=== PATIENT | female | born 1985 | race Caucasian/White ===

== ENCOUNTER 2018-04-18 13:56 | Emergency (ER) | payer OTHER ==
[~2018-04-18] VITALS: Ht 160 cm; Wt 68.1 kg
[2018-04-18] MEDS ORDERED: IPRATRPIUM/ALBUTEROL 0.5/2.5MG 3 ML NEBU. NEB ONE (15:00)
[2018-04-18] MEDS ORDERED: HYDR115S2 PO (15:02)
[2018-04-18] MEDS ORDERED: AZIT250T PO (15:02)
--- NOTE | 2018-04-18 15:02 | PHYS DOC ---
Past History Past Medical History: Arthritis, Asthma, Fibromyalgia Past Surgical History: Other Smoking: Cigarettes, Less than 1pk/day Alcohol Use: Occasionally Additional Alcohol Information: couple beers per weekend Drug Use: None Adult General Chief Complaint Chief Complaint: COUGH HPI HPI 32-year-old female patient complaining of nasal congestion, nonproductive cough , fever up to 103.9, headache and nausea after cough for the last 3 days. Patient states she had tele medicine physician evaluation yesterday and was started on Tamiflu without improvement of her condition. Patient denies sick contact in . Review of Systems Review of Systems Constitutional: Reports fever Eyes: Denies change in visual acuity, redness, or eye pain [] HENT: Denies nasal congestion, sore throat Respiratory: Reports dry cough and shortness of breath Cardiovascular: No additional information not addressed in HPI [] GI: Denies abdominal pain, vomiting, bloody stools, reports nausea and diarrhea [] : Denies dysuria or hematuria [] Musculoskeletal: Denies back pain or joint pain [] Integument: Denies rash or skin lesions [] Neurologic: Denies headache, focal weakness or sensory changes [] Endocrine: Denies polyuria or polydipsia [] All other systems were reviewed and found to be within normal limits, except as documented in this note. Allergies Allergies Allergies Uncoded Allergies Type Severity Reaction Last Updated Verified strawberries Allergy Unknown Hives 04/18/18 Physical Exam Physical Exam Constitutional: Well developed, well nourished, mild distress, non-toxic appearance. [] HENT: Normocephalic, atraumatic, bilateral external ears normal, oropharynx moist, pharyngeal erythema, no oral exudates, nose normal. [] Eyes: PERRLA, EOMI, conjunctiva normal, no discharge. [] Neck: Normal range of motion, no tenderness, supple, no stridor. [] Cardiovascular:Heart rate regular rhythm, no murmur [] Lungs & Thorax: Bilateral breath sounds clear to auscultation [] Abdomen: Bowel sounds normal, soft, no tenderness, no masses, no pulsatile masses. [] Skin: Warm, dry, no erythema, no rash. [] Back: No tenderness, no CVA tenderness. [] Extremities: No tenderness, no cyanosis, no clubbing, ROM intact, no edema. [] Neurologic: Alert and oriented X 3, normal motor function, normal sensory function, no focal deficits noted. [] Psychologic: Affect normal, judgement normal, mood normal. [] Current Patient Data Vital Signs Vital Signs Date Time Temp Pulse Resp B/P (MAP) Pulse Ox O2 Delivery O2 Flow Rate FiO2 04/18/18 14:05 98.2 73 20 97 Room Air EKG EKG [] Radiology/Procedures Radiology/Procedures [] Course & Med Decision Making Course & Med Decision Making Evaluation of patient in ER showed 4-year-old female patient with complaining of URI symptoms for the last 3 days. Patient was afebrile in ER. Patient treated with DuoNeb and plan discharge home with diagnose of viral upper respiratory infection. On to give prescription for Zithromax to start if not getting better in 2 days. Dragon Disclaimer Dragon Disclaimer This electronic medical record was generated, in whole or in part, using a voice recognition dictation system. Departure Departure: Impression: Primary Impression: Upper respiratory infection Additional Impressions: Tobacco abuse Tobacco abuse counseling Disposition: HOME, SELF-CARE (at 1459) Condition: IMPROVED Referrals: SADE NGUYEN MD (PCP) Patient Instructions: Smoking Cessation, Smoking Cessation, Tips For Success, Upper Respiratory Infection, Adult Additional Instructions: Drink plenty of liquids Follow-up with your primary care physician in 3-5 days Return to ER if not getting better Scripts Hydrocodone/Chlorphen P-Stirex (Tussionex Pennkinetic Susp) 115 Ml Chloé.er.12h 5 ML PO BID, #60 ML Prov: DAYNA DIAZ MD 04/18/18 Azithromycin (ZITHROMAX) 250 Mg Tablet 1 PKG PO UD, #1 PKG Prov: DAYNA DIAZ MD 04/18/18 Problem Qualifiers DAYNA DIAZ MD Apr 18, 2018 15:02
[2018-04-18 15:09] VITALS: BP 109/64
== END 2018-04-18 15:09 | disposition home or self-care (01) ==
LOC: ER 13:56
DX: J06.9 Acute upper respiratory infection, unspecified (principal); R51 Headache; M19.90 Unspecified osteoarthritis, unspecified site; J45.909 Unspecified asthma, uncomplicated; M79.7 Fibromyalgia; F17.210 Nicotine dependence, cigarettes, uncomplicated; Z71.6 Tobacco abuse counseling; Z91.018 Allergy to other foods
CPT/HCPCS: 94640; 99283; J7620

== ENCOUNTER 2018-04-20 16:44 | Emergency (ER) | payer OTHER ==
[~2018-04-20] VITALS: Ht 160 cm; Wt 68.1 kg
[~2018-04-20 16:44] MED LIST: AZIT250T PO; HYDR115S2 PO
--- NOTE | 2018-04-20 16:58 | PHYS DOC ---
Past History Past Medical History: Arthritis, Asthma, Fibromyalgia Past Surgical History: Other Smoking: Cigarettes, Less than 1pk/day Alcohol Use: Occasionally Drug Use: None Adult General Chief Complaint Chief Complaint: FLU SYMPTOM HPI HPI Patient presents to the emergency department for evaluation. She states for the past 4 days, she has had nasal congestion, and a cough productive mostly of clear sputum, runny nose, and myalgias. She denies any headache. She states she had been running fevers but is currently afebrile. She was seen 2 days ago in the emergency department was given a cough syrup and a Z-Jony, which has continued to take. She has not gotten much better. She states she was post lobectomy work tomorrow, according to the work that she was given, but is not feeling better. She has not had any urinary symptoms. She denies any other focal pain other than diffuse myalgias. There are no alleviating or exacerbating factors to her symptoms. Review of Systems Review of Systems Constitutional: Reports subjective fevers, but not today. Reports myalgias.[] Eyes: Denies change in visual acuity, redness, or eye pain [] HENT: Denies otalgia or sore throat [] Respiratory: Denies shortness of breath [] Cardiovascular: No additional information not addressed in HPI [] GI: Denies abdominal pain, nausea, vomiting, bloody stools or diarrhea [] : Denies dysuria or hematuria [] Musculoskeletal: Denies back pain or joint pain [] Integument: Denies rash or skin lesions [] Neurologic: Denies headache, focal weakness or sensory changes [] Endocrine: Denies polyuria or polydipsia [] All other systems were reviewed and found to be within normal limits, except as documented in this note. Allergies Allergies Allergies Coded Allergies Type Severity Reaction Last Updated Verified strawberry Allergy Unknown Hives 04/18/18 Yes Physical Exam Physical Exam PHYSICAL EXAM: CONSTITUTIONAL: Well developed, well nourished HEAD: normocephalic, atraumatic EENT: PERRL, EOMI. Conjunctivae normal color, sclerae non-icteric; moist mucous membranes. The oropharynx is unremarkable. Tympanic membranes are normal bilaterally. NECK: Supple, non-tender; no meningismus. LUNGS: Lungs CTA, breathing even and unlabored. Normal air movement. HEART: Regular rate and rhythm, no murmur CHEST: No deformity; non-tender ABDOMEN: The abdomen is soft, and non-tender, no masses or bruits. EXTREM: Normal ROM; no deformity, no calf tenderness. Normal pulses palpable in all extremities. There is no pedal edema. SKIN: No rash; no diaphoresis NEURO: Alert; normal speech and cognition; CN's grossly intact; strength grossly intact without focal deficit. BACK: No CVA TTP. EKG EKG [] Radiology/Procedures Radiology/Procedures [] Course & Med Decision Making Course & Med Decision Making I discussed expectant management and use of [id number] NSAIDs and antipyretics as needed for pain and fever. Return precautions were discussed in detail. Dragon Disclaimer Dragon Disclaimer This electronic medical record was generated, in whole or in part, using a voice recognition dictation system. Departure Departure: Impression: Primary Impression: Upper respiratory infection Disposition: HOME, SELF-CARE Condition: STABLE Referrals: SADE NGUYEN MD (PCP) Patient Instructions: Upper Respiratory Infection, Adult ANY PROCTOR MD Apr 20, 2018 16:58
[2018-04-20 17:13] VITALS: BP 101/54
== END 2018-04-20 17:15 | disposition home or self-care (01) ==
LOC: ER 16:44
DX: J06.9 Acute upper respiratory infection, unspecified (principal); M19.90 Unspecified osteoarthritis, unspecified site; J45.909 Unspecified asthma, uncomplicated; M79.7 Fibromyalgia; F17.210 Nicotine dependence, cigarettes, uncomplicated; Z91.018 Allergy to other foods
CPT/HCPCS: 99281

== ENCOUNTER 2018-09-24 14:53 | Emergency (ER) | payer OTHER ==
[~2018-09-24] VITALS: Ht 160 cm; Wt 63.8 kg
[2018-09-24] MEDS ORDERED: HYDROcodone/APAP 5/325MG 1 TAB TABLET PO ONE (15:30)
[2018-09-24] MEDS ORDERED: IPRATRPIUM/ALBUTEROL 0.5/2.5MG 3 ML NEBU. NEB ONE (15:30)
[2018-09-24] MEDS ORDERED: methylPREDNISolone SOD SUCC PF 125 MG/2 ML VIAL. IM ONE (15:30)
--- NOTE | 2018-09-24 15:48 | PHYS DOC ---
Past History Past Medical History: Arthritis, Asthma, Fibromyalgia Past Surgical History: No Surgical History Smoking: Cigarettes, Less than 1pk/day Alcohol Use: None Drug Use: None Adult General Chief Complaint Chief Complaint: SHORTNESS OF BREATH HPI HPI Patient is a 33 year old female who presents with complaining of cough and shortness of breath. Patient states she had dry cough with shortness of breath that started 4 days ago and was started on Tamiflu by telemedicine physician 3 days ago. Patient states she had fever of 104 three days ago and complaining of increasing cough with chest soreness and shortness of breath and unable to use it because of severe cough. Patient complaining of myalgia and nausea. She denies sick contacts, vomiting, neck pain, , focal neuro deficit, headache. Review of Systems Review of Systems Constitutional: Reports fever Eyes: Denies change in visual acuity, redness, or eye pain [] HENT: Reports nasal congestion or sore throat Respiratory: Reports cough and shortness of breath Cardiovascular: No additional information not addressed in HPI [] GI: Denies abdominal pain, vomiting, bloody stools or diarrhea [] : Denies dysuria or hematuria [] Musculoskeletal: Denies back pain or joint pain [] Integument: Denies rash or skin lesions [] Neurologic: Denies headache, focal weakness or sensory changes [] Endocrine: Denies polyuria or polydipsia [] All other systems were reviewed and found to be within normal limits, except as documented in this note. Current Medications Current Medications Current Medications Medications (Trade) Dose Ordered Sig/Danielle Start Time Stop Time Status Last Admin Dose Admin Acetaminophen/ Hydrocodone Bitart (Lortab 5/325) 1 tab 1X ONCE 09/24/18 15:30 09/24/18 15:31 DC 09/24/18 15:28 1 TAB Albuterol/ Ipratropium (Duoneb) 3 ml 1X ONCE 09/24/18 15:30 09/24/18 15:31 DC 09/24/18 15:28 3 ML Methylprednisolone Sodium Succinate (SOLU-Medrol 125MG VIAL) 125 mg 1X ONCE 09/24/18 15:30 09/24/18 15:31 DC 09/24/18 15:28 125 MG Allergies Allergies Allergies Coded Allergies Type Severity Reaction Last Updated Verified strawberry Allergy Unknown Hives 04/18/18 Yes Physical Exam Physical Exam Constitutional: Well developed, well nourished, moderate distress, non-toxic appearance. [] HENT: Normocephalic, atraumatic, bilateral external ears normal, oropharynx moist, pharyngeal erythema, no oral exudates, nose normal. [] Eyes: PERRLA, EOMI, conjunctiva normal, no discharge. [] Neck: Normal range of motion, no tenderness, supple, no stridor. [] Cardiovascular:Heart rate regular rhythm, no murmur [] Lungs & Thorax: Bilateral breath sounds clear to auscultation [] Abdomen: Bowel sounds normal, soft, no tenderness, no masses, no pulsatile masses. [] Skin: Warm, dry, no erythema, no rash. [] Back: No tenderness, no CVA tenderness. [] Extremities: No tenderness, no cyanosis, no clubbing, ROM intact, no edema. [] Neurologic: Alert and oriented X 3, normal motor function, normal sensory function, no focal deficits noted. [] Psychologic: Affect normal, judgement normal, mood normal. [] Current Patient Data Vital Signs Vital Signs Date Time Temp Pulse Resp B/P (MAP) Pulse Ox O2 Delivery O2 Flow Rate FiO2 09/24/18 15:32 95 Room Air 09/24/18 15:28 18 09/24/18 15:07 98.7 80 EKG EKG [] Radiology/Procedures Radiology/Procedures [] Course & Med Decision Making Course & Med Decision Making Pertinent Imaging studies reviewed. (See chart for details) Evaluation of patient in ER showed 33-year-old female patient with complaining of cough and shortness of breath and chest soreness without responding to Tamiflu. Chest x-ray did not show infiltration. Patient had stable vital signs without fever and tachycardia and hypertension in ER. Patient treated with Solu- Medrol and DuoNeb and felt better. Plan discharge patient home to diagnose of acute bronchitis. Dragon Disclaimer Dragon Disclaimer This electronic medical record was generated, in whole or in part, using a voice recognition dictation system. Departure Departure: Impression: Primary Impression: Acute bronchitis Additional Impressions: Cough Chest wall pain Tobacco abuse Tobacco abuse counseling Disposition: HOME, SELF-CARE (at 1618) Condition: IMPROVED Referrals: SADE NGUYEN MD (PCP) Patient Instructions: Acute Bronchitis, Cough, Adult, Smoking Cessation, Tips For Success Additional Instructions: Drink plenty of liquids Follow-up with your primary care physician in 3-5 days Return to ER if not getting better Continue Tamiflu Scripts Ipratropium/Albuterol Sulfate (COMBIVENT RESPIMAT INHAL) 4 Gm Aer.w.adap 2 PUFF INH QID for shortness of breath, #1 INHALER Prov: DAYNA DIAZ MD 09/24/18 Ondansetron Hcl (ZOFRAN) 4 Mg Tablet 1 TAB PO Q6HRS for nausea and vomiting, #12 TAB Prov: DAYNA DIAZ MD 09/24/18 Azithromycin (ZITHROMAX) 250 Mg Tablet 1 PKG PO UD for infection, #1 PKG Prov: DAYNA DIAZ MD 09/24/18 Hydrocodone/Chlorphen P-Stirex (Tussionex Pennkinetic Susp) 115 Ml Chloé.er.12h 5 ML PO BID for cough and congestion, #60 ML Prov: DAYNA DIAZ MD 09/24/18 Methylprednisolone (MEDROL) 4 Mg Tab.ds.pk 1 PKG PO UD for inflammation, #1 PKG Prov: DAYNA DIAZ MD 09/24/18 Albuterol Sulfate (ALBUTEROL SULFATE NEB SOLN ) 2.5 Mg/3 Ml Vial.neb 2.5 MG NEB Q4-6HRS PRN for SHORTNESS OF BREATH, #25 EACH 0 Refills Prov: DAYNA DIAZ MD 09/24/18 Problem Qualifiers DAYNA DIAZ MD Sep 24, 2018 15:48
--- NOTE | 2018-09-24 15:52 | RAD ---
CHEST PA LATERAL History: cough with short of breath, hx of asthma, pt shielded. Comparison: None. Heart size: Within normal limits. Roya/mediastinum: Within normal limits Lungs: No focal airspace consolidation. Pleura: No evidence of pleural effusion. Pneumothorax: None visualized Bones: Regional skeleton appears grossly intact. Miscellaneous: None Impression: No acute radiographic findings. Electronically signed by: Gregor Montez MD (09/24/2018 3:48 PM) [facility]
[2018-09-24 16:11] VITALS: BP 104/95
[2018-09-24] MEDS ORDERED: ALBU2.5V5 NEB (16:22)
[2018-09-24] MEDS ORDERED: HYDR115S2 PO (16:22)
[2018-09-24] MEDS ORDERED: METH4TAB2 PO (16:22)
[2018-09-24] MEDS ORDERED: IPRA4AER INH (16:23)
[2018-09-24] MEDS ORDERED: ONDA4TAB7 PO (16:23)
[2018-09-24] MEDS ORDERED: AZIT250T PO (16:23)
== END 2018-09-24 16:30 | disposition home or self-care (01) ==
LOC: ER 14:53
DX: J20.9 Acute bronchitis, unspecified (principal); R07.89 Other chest pain; M19.90 Unspecified osteoarthritis, unspecified site; J45.909 Unspecified asthma, uncomplicated; M79.7 Fibromyalgia; F17.210 Nicotine dependence, cigarettes, uncomplicated; Z71.6 Tobacco abuse counseling; Z91.018 Allergy to other foods
CPT/HCPCS: 71046; 94640; 96372; 99283; J2930; J7620

== ENCOUNTER 2019-05-04 16:59 | Emergency (ER) | payer MEDICAID, OTHER ==
[~2019-05-04] VITALS: Ht 160 cm; Wt 74.2 kg
[~2019-05-04 16:59] MED LIST changes: +ALBU2.5V5 NEB; +IPRA4AER INH; +METH4TAB2 PO; +ONDA4TAB7 PO
--- NOTE | 2019-05-04 17:27 | PHYS DOC ---
Past History Past Medical History: Arthritis, Asthma, Fibromyalgia, Migraines (CHILO CHAN DO) Past Surgical History: No Surgical History (CHILO CHAN DO) Smoking: Cigarettes, Less than 1pk/day Alcohol Use: None Drug Use: None (CHILO CHAN DO) Adult General HPI HPI Patient is a 33-year-old female presents with a left-sided posterior headache for the past 5 days. There has been some photophobia with this and some sensitivity to sound. This is not like her usual migraines which are typically in the front. She was [facility] and given Imitrex without any improvement in the discomfort. She notes that she dropped a dish yesterday from her left arm. There has been some nausea along with one episode of vomiting. No trauma. No fever. Pain is moderate in intensity.[] (CHILO CHAN DO) Review of Systems Review of Systems Constitutional: Denies fever or chills [] Eyes: Denies change in visual acuity, redness, or eye pain [] HENT: Denies nasal congestion or sore throat [] Respiratory: Denies cough or shortness of breath [] Cardiovascular: No chest pain or palpitations[] GI: Denies abdominal pain, nausea, vomiting, bloody stools or diarrhea [] : Denies dysuria or hematuria [] Musculoskeletal: Denies back pain or joint pain [] Integument: Denies rash or skin lesions [] Neurologic: Denies focal weakness or sensory changes, see history of present illness [] Endocrine: Denies polyuria or polydipsia [] All other systems were reviewed and found to be within normal limits, except as documented in this note. (CHILO CHAN DO) Allergies Allergies Allergies Coded Allergies Type Severity Reaction Last Updated Verified strawberry Allergy Unknown Hives 04/18/18 Yes (CHILO CHAN DO) Physical Exam Physical Exam Constitutional: Well developed, well nourished, no acute distress, non-toxic appearance. [] HENT: Normocephalic, atraumatic, bilateral external ears normal, oropharynx moist, no oral exudates, nose normal. [] Eyes: PERRLA, EOMI, conjunctiva normal, no discharge. [] Neck: Normal range of motion, no meningismus, some tenderness at the base of the skull on the left side which re-creates her discomfort., supple, no stridor. [] Cardiovascular:Heart rate regular rhythm, no murmur [] Lungs & Thorax: Bilateral breath sounds clear to auscultation [] Abdomen: Bowel sounds normal, soft, no tenderness, no masses, no pulsatile masses. [] Skin: Warm, dry, no erythema, no rash. [] Back: No tenderness, no CVA tenderness. [] Extremities: No tenderness, no cyanosis, no clubbing, ROM intact, no edema. [] Neurologic: Alert and oriented X 3, normal motor function, normal sensory function, no focal deficits noted. Normal repetitive and alternating movements.[] Psychologic: Affect normal, judgement normal, mood normal. [] (CHILO CHAN DO) EKG EKG [] (CHILO CHAN DO) Radiology/Procedures Radiology/Procedures [] (CHILO CHAN DO) Course & Med Decision Making Course & Med Decision Making Pertinent Labs and Imaging studies reviewed. (See chart for details) ED course: Patient arrived, was placed in bed, and tolerated exam well. His transported to and from radiology with any complications. Patient care endorsed to the nighttime physician at 1800 with imaging's studies in process as well as pain management.[] (CHILO CHAN DO) Course & Med Decision Making The patient was initially hesitant about IV medications. She doesn't like these. I offered her by mouth Zofran to help prevent her from vomiting when she got the IV. She agreed this would be helpful. She was then given 1 L normal saline, 30 mg of Toradol, 50 mg of Benadryl, 10 mg of Reglan. Over the saline was ordered by my colleague. The patient is feeling better at this time. She would like to go home. She is stable for discharge at this time. (DODIE ODONNELL DO) Dragon Disclaimer Dragon Disclaimer This electronic medical record was generated, in whole or in part, using a voice recognition dictation system. (CHILO CHAN DO) Departure Departure: Impression: Primary Impression: Headache Disposition: HOME, SELF-CARE Condition: STABLE Referrals: PCP,NO (PCP) Patient Instructions: General Headache Without Cause, [id number] Problem Qualifiers Primary Impression: Headache Headache type: unspecified Headache chronicity pattern: acute headache Intractability: intractable Qualified Codes: R51 - Headache CHILO CHAN DO May 04, 2019 17:27 DODIE ODONNELL DO May 04, 2019 19:20
[2019-05-04] MEDS ORDERED: KETOROLAC 15 MG/ML VIAL. IV ONE (17:30)
[2019-05-04] MEDS ORDERED: diphenhydrAMINE 50 MG/ML VIAL IVP ONE (17:30)
[2019-05-04] MEDS ORDERED: METOCLOPRAMIDE HCL 10 MG/2 ML VIAL. IV ONE (17:30)
--- NOTE | 2019-05-04 17:49 | RAD ---
Exam: CT head INDICATION: Left-sided occipital headache TECHNIQUE: Sequential axial images through the head were obtained without the administration of IV contrast. Comparisons: None FINDINGS: No focal parenchymal lesion or hemorrhage is identified. There is no midline shift or sulcal effacement. No acute vascular territory infarction is identified. Rosen-white distinction is preserved. The ventricular system is within normal limits without compression hydrocephalus. The basal cisterns are well maintained. The visualized portions of the paranasal sinuses and mastoid air cells are well-pneumatized. No acute fractures. IMPRESSION: No acute intracranial abnormality. Exposure: One or more of the following in the visualized dose reduction techniques were utilized for this examination: 1. Automated exposure control 2. Adjustment of the MA and/or KV according to patient size Use of iterative of reconstructive technique Electronically signed by: Jose M Laboy MD (05/04/2019 5:46 PM) [facility]
[2019-05-04] MEDS ORDERED: ONDANSETRON ODT 4 MG TAB.RAPDIS PO ONE (18:15)
[2019-05-04] MEDS ORDERED: IV NORMAL SALINE 1,000ML 1,000 ML IV ONE (18:15)
[2019-05-04] MEDS ORDERED: ONDANSETRON ODT 4 MG TAB.RAPDIS ONE (18:16)
[2019-05-04 19:25] VITALS: BP 114/57
== END 2019-05-04 19:29 | disposition home or self-care (01) ==
LOC: ER 16:59
DX: G43.909 Migraine, unspecified, not intractable, without status migrainosus (principal); J45.909 Unspecified asthma, uncomplicated; M79.7 Fibromyalgia; F17.210 Nicotine dependence, cigarettes, uncomplicated; Z91.018 Allergy to other foods
CPT/HCPCS: 70450; 81025; 96374; 96375; 99284; J1200; J1885; J2765; Q0162; J7030

== ENCOUNTER 2020-09-23 17:27 | Emergency (ER) | payer MEDICAID ==
[~2020-09-23] VITALS: Ht 160 cm; Wt 75.0 kg
--- NOTE | 2020-09-23 17:43 | PHYS DOC ---
Past History Past Medical History: Arthritis, Asthma, Fibromyalgia, Migraines, Pneumonia Past Surgical History: Other Smoking: Cigarettes, Less than 1pk/day Alcohol Use: Occasionally Drug Use: None General Adult HPI: HPI: ".. I been sick since Tuesday.. Nausea, pain.. malaise.. ..". " hurts down here on the Lt. " This has not been a good year.. I have had Covid, in .. I had pneumonia,.. I have had flu of and on .. all the past several months....". ." Ever since the COVID.. " Patient is a 35 year old female who presents with above hx and complaints N/V, pain since Tuesday.. Pt. did eat lunch to day [employer] and [employer] . 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 Pt. did have COVID in Jun.. Follows with Dr. Sidhu as primary . Has not received Covid vaccination yet. Did receive flu vaccination through [facility]. No history of bad food intake. No history of previous renal stones. No history of immunosuppression. Has never had a colonoscopy. No history of family colitis or renal stones. Patient does smoke tobacco but attempting to quit, with the assistance of Wellbutrin. No history of prior episodes of colitis. But has had some history suggesting of irritable bowel syndrome. There is family history with mother with a type of colitis with onset at age 40. No history of vaginal discharge. No history of fear of STD. Patient denies any trauma. Patient denies history of kidney stones. Patient denies any immunosuppression. No recent fever or chills. Review of Systems: Review of Systems: Constitutional: Denies fever or chills Eyes: Denies change in visual acuity HENT: Denies nasal congestion or sore throat Respiratory: Denies cough or shortness of breath Cardiovascular: Denies chest pain or edema GI: Planes of left lower quadrant abdominal pain, nausea., vomiting, bloody stools or diarrhea : Denies dysuria Musculoskeletal: Denies back pain or joint pain Integument: Denies rash Neurologic: Denies headache, focal weakness or sensory changes Endocrine: Denies polyuria or polydipsia Lymphatic: Denies swollen glands Psychiatric: Denies depression or anxiety Family History: Family History: Noncontributory to presentation Current Medications: Current Meds: See nursing for home meds Allergies: Allergies: Allergies Coded Allergies Type Severity Reaction Last Updated Verified strawberry Allergy Unknown Hives 04/18/18 Yes Physical Exam: PE: Constitutional: Moderate acute distress, non-toxic appearance. [] HENT: Normocephalic, atraumatic, bilateral external ears normal, oropharynx moist, no oral exudates, nose normal. [] Eyes: PERRLA, EOMI, conjunctiva normal, no discharge. [] Neck: Normal range of motion, no tenderness, supple, no stridor. [] Cardiovascular:Heart rate regular rhythm, no murmur [] Lungs & Thorax: Bilateral breath sounds equal apex with scattered wheezes auscultation [] Abdomen: Bowel sounds decreased, soft, left lower quadrant tenderness, no masses, no pulsatile masses. [] Rebound to left lower quadrant. No reported discharge vaginally. Very distended. Skin: Warm, dry, no erythema, no rash. [] Back: No tenderness, no CVA tenderness. [] Extremities: No tenderness, no cyanosis, no clubbing, ROM intact, no edema. Mild psoas on left Neurologic: Alert and oriented X 3, normal motor function, normal sensory function, no focal deficits noted. [] Psychologic: Affect anxious, judgement normal, mood normal. [] EKG: EKG: [] Radiology/Procedures: Radiology/Procedures: [][place] [address] IMAGING REPORT Signed PATIENT: KAREN LEONARD DACCOUNT: [id number] : 1985 LOCATION: ER AGE: 35 SEX: F EXAM STATUS: REG ER ORD. PHYSICIAN: ISAEL SPRING MD REASON: Continued Left sided abdomen pain Omni 300 75cc PROCEDURE: CT ABD PELV W/ORAL&IV CONTRAST CT ABDOMEN+PELVIS W History: Continued Left sided abdomen pain Comparison: None. Technique: After administration of intravenous contrast, helical CT of the abdomen and pelvis was performed from the lung bases through the ischial tuberosities. Coronal and sagittal reconstructions were obtained. 75 mL of Omnipaque 300 were used. One or more of the following dose reduction techniques were utilized: Automated exposure control (AEC), Adjustment of mA and/or kV according to patient size, Use of iterative reconstruction technique such as ASiR, CT scan done according to ALARA and image gently/image wisely Abdomen Findings: The visualized lung bases are clear. The liver, gallbladder, pancreas, spleen, and bilateral adrenal glands are normal. Symmetric renal enhancement. There is no focal renal mass. There is no hydronephrosis. The visualized loops of small bowel are normal. The visualized loops of large bowel are normal. Moderate colonic stool burden. There is no evidence of bowel obstruction. Appendix is mildly dilated, measuring 9 mm in diameter. No significant periappendiceal inflammation. There is no free fluid. There is no mesenteric or retroperitoneal adenopathy. The abdominal aorta is normal in caliber. Pelvis Findings: Urinary bladder is normal. Retroflexed uterus. No pelvic free fluid. There is no pelvic or inguinal adenopathy. There is no acute bony abnormality. IMPRESSION: Mildly dilated appendix measures 9 mm in diameter. No significant inflammation, fluid collection, or free air. Size could be within normal range for patient, although without priors for comparison an early appendicitis is not excluded. Electronically signed by: Heidy Bob MD (09/23/2020 10:32 PM) [facility] DICTATED AND SIGNED BY: HEIDY BOB MD DATE: 09/23/202220 CC: ISAEL SPRING MD; PCP,NO ~MTH0 [address] [place] [address] IMAGING REPORT Signed PATIENT: KAREN LEONARD DACCOUNT: [id number] : 1985 LOCATION: ER AGE: 35 SEX: F EXAM STATUS: REG ER ORD. PHYSICIAN: ISAEL SPRING MD REASON: Left sided abdomen and chest pain PROCEDURE: ACUTE ABDOMEN SERIES Acute Abdominal Series: Technique: PA view of the chest and supine and upright views of the abdomen were obtained. History: Right-sided abdominal pain and chest.. Comparison: None. Findings: The lungs and pleural margins are clear. There is formed stool scattered throughout the colon. There is a paucity of small bowel gas. There is no free air. Impression: Nonobstructive bowel gas pattern consistent with constipation. Electronically signed by: Alisson Ramires III, MD (09/23/2020 6:52 PM) [facility] DICTATED AND SIGNED BY: ALISSON RAMIRES III, MD DATE: 09/23/201850 CC: ISAEL SPRING MD; PCP,NO ~MTH0 0 Heart Score: Risk Factors: Risk Factors: DM, Current or recent (<one month) smoker, HTN, HLP, family history of CAD, obesity. Risk Scores: Score 0 - 3: 2.5% MACE over next 6 weeks - Discharge Home Score 4 - 6: 20.3% MACE over next 6 weeks - Admit for Clinical Observation Score 7 - 10: 72.7% MACE over next 6 weeks - Early Invasive Strategies Course & Med Decision Making: Course & Med Decision Making Pertinent Labs and Imaging studies reviewed. (See chart for details) Patient remain on a clear fluid diet only for the next 24 to 48 hours. No solids. No milk products. Must allow bowel rest. Take Tylenol and ibuprofen for pain. For marked pain may take Vicoprofen. But warning the Vicoprofen may increase your constipation. Recommend patient get a colonoscopy to evaluate for colitis since there is a family history of her mother. May take Zofran for active nausea and vomiting. Return if any concerns. Would recommend get Covid rapid testing at [facility] where she works since there have been cases of reinfection. Did recommend patient to complete her Covid vaccination in spite of her previous Covid infection. Encourage patient to continue efforts at tobacco cessation. Re-exam if no improvement. Pt. issued Disc of Xray and CT finding for her follow up with primary and GI. Impression: 1. Generalized abdomen pain 2. Constipation 3. History of Covid infection 07/08 4. IBS 5. Tobacco use. [] Dragon Disclaimer: Dragon Disclaimer: This electronic medical record was generated, in whole or in part, using a voice recognition dictation system. Departure Departure: Referrals: PCP,NO (PCP) Scripts Hydrocodone/Ibuprofen (HYDROCODONE-IBUPROFEN 7.5-200 ) 1 Each Tablet 1 TAB PO PRN Q6HRS PRN for PAIN, #30 TAB 0 Refills Prov: ISAEL SPRING MD 09/23/20 Ondansetron Hcl (ZOFRAN) 4 Mg Tablet 8 MG PO QIDPRN for nv, #30 TAB Prov: ISAEL SPRING MD 09/23/20 Magdalena Disclaimer This chart was dictated in whole or in part using Voice Recognition software in a busy, high-work load, and often noisy Emergency Department environment. It may contain unintended and wholly unrecognized errors or omissions. Dragon Disclaimer This chart was dictated in whole or in part using Voice Recognition software in a busy, high-work load, and often noisy Emergency Department environment. It may contain unintended and wholly unrecognized errors or omissions. ISAEL SPRING MD Sep 23, 2020 17:43
[2020-09-23] MEDS ORDERED: FAMOTIDINE 20 MG/2 ML VIAL IVP ONE (17:45)
[2020-09-23] MEDS ORDERED: ONDANSETRON PF 4 MG/2 ML VIAL. IVP ONE ×2 (17:45→23:00)
[2020-09-23] MEDS ORDERED: IV RINGERS SOLUTION,LACTATED 1,000 ML IV SCH (17:45)
--- NOTE | 2020-09-23 18:54 | RAD ---
Acute Abdominal Series: Technique: PA view of the chest and supine and upright views of the abdomen were obtained. History: Right-sided abdominal pain and chest.. Comparison: None. Findings: The lungs and pleural margins are clear. There is formed stool scattered throughout the colon. There is a paucity of small bowel gas. There is no free air. Impression: Nonobstructive bowel gas pattern consistent with constipation. Electronically signed by: Zafar Osborne III, MD (09/23/2020 6:52 PM) [facility]
[2020-09-23 19:09] LABS: BASO % 0 % (0-3); EOS # 0.2 x10^3/uL (0.0-0.7); EOS % 3 % (0-3); HEMATOCRIT 40.5 % (36.0-47.0); HEMOGLOBIN 13.9 g/dL (12.0-15.5); LYMPH # 1.8 x10^3/uL (1.0-4.8); LYMPH % 24 % (24-48); MEAN CORPUSCULAR HEMOGLOBIN 29 pg (25-35); MEAN CORPUSCULAR HGB CONC 34 g/dL (31-37); MEAN CORPUSCULAR VOLUME 85 fL (79-100); MONO # 0.6 x10^3/uL (0.0-1.1); MONO % 8 % (0-9); NEUT # 4.9 x10^3uL (1.8-7.7); NEUT % 66 % (31-73); PLATELET COUNT 218 x10^3/uL (140-400); RED BLOOD COUNT 4.75 x10^6/uL (3.50-5.40); WHITE BLOOD COUNT 7.5 x10^3/uL (4.0-11.0)
[2020-09-23 19:21] LABS: CALCIUM 8.8 mg/dL (8.5-10.1); CREATININE 0.7 mg/dL (0.6-1.0); GFR 96.4; POTASSIUM 3.9 mmol/L (3.5-5.1)
[2020-09-23 19:24] LABS: AMPHETAMINE/METHAMPHETAMINE NEG (NEG); BARBITURATES NEG (NEG); BENZODIAZEPINES NEG (NEG); BILIRUBIN,URINE NEG (NEG); CLARITY,URINE CLEAR; COLOR,URINE YELLOW; GLUCOSE,URINE NEG (NEG); NITRITE,URINE NEG (NEG); WBC,URINE 0 /HPF (0-4)
[2020-09-23 19:25] LABS: BACTERIA,URINE 0 /HPF (0-FEW); CANNABINOIDS NEG (NEG); COCAINE NEG (NEG); METHADONE NEG (NEG); OPIATES NEG (NEG); PHENCYCLIDINE NEG (NEG); SQUAMOUS EPITHELIAL CELL,UR MOD /LPF
[2020-09-23 19:27] LABS: ALBUMIN 3.7 g/dL (3.4-5.0); DIRECT BILIRUBIN 0.1 mg/dL (0.0-0.2); TOTAL BILIRUBIN 0.4 mg/dL (0.2-1.0); TOTAL PROTEIN 7.4 g/dL (6.4-8.2)
[2020-09-23] MEDS ORDERED: KETOROLAC 30 MG/ML VIAL. IVP ONE (19:30)
[2020-09-23 19:31] LABS: U PREG PATIENT NEGATIVE (NEG)
[2020-09-23] MEDS ORDERED: MORPHINE SULFATE 10 MG/ML SYRINGE. SQ ONE (20:15)
[2020-09-23] MEDS ORDERED: IOHEXOL 240 MG/ML 50ML VIAL. ONE (20:27)
[2020-09-23] MEDS ORDERED: diphenhydrAMINE 50 MG/ML VIAL IVP ONE (21:30)
[2020-09-23] MEDS ORDERED: IOHEXOL 300 MG/ML 75 ML VIAL. IV ONE (21:45)
--- NOTE | 2020-09-23 22:35 | RAD ---
CT ABDOMEN+PELVIS W History: Continued Left sided abdomen pain Comparison: None. Technique: After administration of intravenous contrast, helical CT of the abdomen and pelvis was per formed from the lung bases through the ischial tuberosities. Coronal and sagittal reconstructions wer e obtained. 75 mL of Omnipaque 300 were used. One or more of the following dose reduction techniques were utilized: Automated exposure control (AEC), Adjustment of mA and/or kV according to patient size , Use of iterative reconstruction technique such as ASiR, CT scan done according to ALARA and image g ently/image wisely Abdomen Findings: The visualized lung bases are clear. The liver, gallbladder, pancreas, spleen, and bilateral adrenal glands are normal. Symmetric renal enhancement. There is no focal renal mass. There is no hydronephrosis. The visualized loops of small bowel are normal. The visualized loops of large bowel are normal. Moder ate colonic stool burden. There is no evidence of bowel obstruction. Appendix is mildly dilated, thomas uring 9 mm in diameter. No significant periappendiceal inflammation. There is no free fluid. There is no mesenteric or retroperitoneal adenopathy. The abdominal aorta is normal in caliber. Pelvis Findings: Urinary bladder is normal. Retroflexed uterus. No pelvic free fluid. There is no pelvic or inguinal a denopathy. There is no acute bony abnormality. IMPRESSION: Mildly dilated appendix measures 9 mm in diameter. No significant inflammation, fluid collection, or free air. Size could be within normal range for patient, although without priors for comparison an ea rly appendicitis is not excluded. Electronically signed by: Shahid Bob MD (09/23/2020 10:32 PM) [facility]
[2020-09-23] MEDS ORDERED: ONDA4TAB7 PO (23:03)
[2020-09-23] MEDS ORDERED: HYDR-1179 PO (23:03)
[2020-09-23 23:15] VITALS: BP 96/57
[2020-09-23] MEDS ORDERED: MAGNESIUM HYDROXIDE 2,400 MG/30 ML ORAL.SUSP. PO ONE (23:30)
== END 2020-09-23 23:20 | disposition home or self-care (01) ==
LOC: ER 17:27
DX: K59.00 Constipation, unspecified (principal); K58.9 Irritable bowel syndrome, unspecified; R10.84 Generalized abdominal pain; R11.2 Nausea with vomiting, unspecified; M19.90 Unspecified osteoarthritis, unspecified site; J45.909 Unspecified asthma, uncomplicated; M79.7 Fibromyalgia; G43.909 Migraine, unspecified, not intractable, without status migrainosus; F17.210 Nicotine dependence, cigarettes, uncomplicated; Z91.018 Allergy to other foods
CPT/HCPCS: 36415; 74022; 74177; 80048; 80076; 80307; 81001; 81025; 82150; 82550; 84484; 85025; 85610; 85730; 96361; 96374; 96375; 96376; 99285; J1200; J1885; J2405; J3490; J7120; Q9967

== ENCOUNTER 2021-03-16 19:25 | Emergency (ER) | payer OTHER, MEDICAID ==
[~2021-03-16] VITALS: Ht 160 cm; Wt 74.0 kg
[~2021-03-16 19:25] MED LIST changes: +HYDR-1179 PO
--- NOTE | 2021-03-16 20:11 | PHYS DOC ---
Past History Past Medical History: Arthritis, Asthma, Fibromyalgia, Migraines, Pneumonia Past Surgical History: Other Additional Past Surgical Histo: LEEP Smoking: Cigarettes, Less than 1pk/day Alcohol Use: Occasionally Drug Use: None Adult General Chief Complaint Chief Complaint: ABDOMINAL PAIN HPI HPI Patient is a otherwise healthy 35-year-old female who presents with a chief complaint of abdominal pain, 7 out of 10, dull and achy in nature which started last night with some nausea but no vomiting and soft stool. States this feels similar to an episode that she had a little over a month ago that she was in the hospital for. States she was told she had preappendicitis, got some antibiotics and sent her home. States he has been doing well since then. Denies any recent traumas, travel, chest pain, shortness of breath, dysuria, hematuria or blood in the stool. Does endorse fevers at home to 101 this morning for which she took some Tylenol that seemed to help. Denies any other known ill contacts. Review of Systems Review of Systems Review of systems otherwise unremarkable except noted in HPI Allergies Allergies Allergies Coded Allergies Type Severity Reaction Last Updated Verified hydrocodone Allergy Unknown Nausea 09/23/20 Yes metronidazole Allergy Unknown Nausea and Vomiting 09/23/20 Yes strawberry Allergy Unknown Hives 09/23/20 Yes Physical Exam Physical Exam Constitutional: Well developed, well nourished, no acute distress, non-toxic appearance. [] HENT: Normocephalic, atraumatic, bilateral external ears normal, oropharynx moist, no oral exudates, nose normal. [] Eyes: conjunctiva normal, no discharge. [] Neck: Normal range of motion, no tenderness, supple, no stridor. [] Cardiovascular:Heart rate regular rhythm, no murmur [] Lungs & Thorax: Bilateral breath sounds clear to auscultation [] Abdomen: Bowel sounds normal, soft, tenderness around the umbilicus and right lower quadrant with no rebound or guarding, no masses, no pulsatile masses. [] Skin: Warm, dry, no erythema, no rash. [] Back: no CVA tenderness. [] Extremities: No tenderness, no cyanosis, no clubbing, ROM intact, no edema. [] Neurologic: Alert and oriented X 3, no focal deficits noted. [] Psychologic: Affect normal, judgement normal, mood normal. [] EKG EKG [] Radiology/Procedures Radiology/Procedures [] Heart Score C/O Chest Pain: No Risk Factors: Risk Factors: DM, Current or recent (<one month) smoker, HTN, HLP, family history of CAD, obesity. Risk Scores: Risk Factors: DM, Current or recent (<one month) smoker, HTN, HLP, family history of CAD, obesity. Course & Med Decision Making Course & Med Decision Making Patient is a 35-year-old female presents with right lower quadrant abdominal pain associated with nausea and decreased appetite for about a day Vital signs not concerning. Physical exam noted above. Patient placed on the monitor with IV access established. Given Zofran for nausea and morphine for pain. Made n.p.o. Started IV fluid resuscitation. Given GI cocktail. Laboratory analysis not concerning. Urinalysis not concerning. Urine negative. CT the abdomen pelvis not concerning. On reassessment, patient symptoms had significantly improved and patient was feeling better. Patient and family asked to be discharged home. Discussed all findings with family and advised on pain regimen at home. Advised to follow-up in the morning with primary care physician. Gave strict return pr ecautions to the ED. [] Dragon Disclaimer Dragon Disclaimer This electronic medical record was generated, in whole or in part, using a voice recognition dictation system. Departure Departure: Impression: Primary Impression: Abdominal pain Disposition: HOME / SELF CARE / HOMELESS Condition: GOOD Referrals: PCP,NO (PCP) ZULAY AGUILAR MD Patient Instructions: Abdominal Pain (Nonspecific) Additional Instructions: Thank you for coming into the emergency department tonight and allowing us to take care of you. Please read all the attached information very carefully. All of your laboratory analysis was within normal limits. Your urinalysis was not concerning for urinary tract infection. Your test was negative. And the CT of your abdomen and pelvis was normal as well. You can begin a Tylenol, ibuprofen and [id number] heartburn medicine as discussed. Please call your primary care physician first thing in the morning to update on your ED visit and set up a follow-up as soon as you can. Please come back to the emergency department immediately with new or concerning symptoms as discussed. NIK THAPA MD Mar 16, 2021 20:11
[2021-03-16] MEDS ORDERED: IOHEXOL 300 MG/ML 75 ML VIAL. IV ONE (20:15)
[2021-03-16] MEDS ORDERED: IV RINGERS SOLUTION,LACTATED 1,000 ML IV ONE (20:15)
[2021-03-16] MEDS ORDERED: ONDANSETRON PF 4 MG/2 ML VIAL. IVP ONE (20:15)
[2021-03-16] MEDS ORDERED: MORPHINE SULFATE 4 MG/ML DISP.SYRIN. IV ONE (20:15)
[2021-03-16 20:20] LABS: BILIRUBIN,URINE NEG (NEG); CLARITY,URINE CLEAR; COLOR,URINE YELLOW; GLUCOSE,URINE NEG (NEG); U PREG PATIENT NEGATIVE (NEG)
[2021-03-16 20:21] LABS: NITRITE,URINE NEG (NEG); UROBILINOGEN,URINE 0.2 mg/dL (0.2 mg/dL)
[2021-03-16 20:23] LABS: BACTERIA,URINE 0 /HPF (0-FEW); RBC,URINE 0 /HPF (0-2); SQUAMOUS EPITHELIAL CELL,UR FEW /LPF; WBC,URINE 0 /HPF (0-4)
[2021-03-16 20:39] LABS: ALBUMIN 3.8 g/dL (3.4-5.0); ALBUMIN/GLOBULIN RATIO 1.2 (1.0-1.7); CALCIUM 8.7 mg/dL (8.5-10.1); CREATININE 0.7 mg/dL (0.6-1.0); GFR 96.4; POTASSIUM 3.5 mmol/L (3.5-5.1); TOTAL BILIRUBIN 0.3 mg/dL (0.2-1.0); TOTAL PROTEIN 7.1 g/dL (6.4-8.2)
--- NOTE | 2021-03-16 21:05 | RAD ---
Exam: CT of abdomen and pelvis with contrast INDICATION: Right lower quadrant abdominal pain TECHNIQUE: Sequential axial images through the abdomen and pelvis obtained following the administrati on of 75 mL of Omni 300 IV contrast. Sagittal and coronal reformatted images were reconstructed from the axial data and reviewed. Exposure: One or more of the following in the visualized dose reduction techniques were utilized for this examination: 1. Automated exposure control 2. Adjustment of the MA and/or KV according to patient size 3. Use of iterative of reconstructive technique Comparisons: 09/23/2020 FINDINGS: Heart size is normal. No pericardial visualized lung bases are clear. No pleural effusion. Liver, spleen, pancreas, gallbladder and adrenals are unremarkable. No perinephric inflammation or hydronephrosis. No renal or ureteral calculi are identified. Bladder is decompressed not well evaluated. Uterus is not enlarged. No abnormal adnexal mass. Large and small bowel are unremarkable. Appendix is normal. No free intra-abdominal air or fluid. No obstruction. Abdominal aorta has a normal course and caliber. Abdominal vasculature is patent. No enlarged intra-abdominal lymph nodes are identified. No suspicious osseous lesions or acute fractures. IMPRESSION: Normal appendix. No acute process identified within the abdomen or pelvis. Electronically signed by: Jose M Laboy MD (03/16/2021 9:03 PM) [facility]
[2021-03-16 21:11] VITALS: BP 106/73
[2021-03-16 21:21] LABS: BASO % 0 % (0-3); EOS # 0.3 x10^3/uL (0.0-0.7); EOS % 4 % (0-3); HEMATOCRIT 39.3 % (36.0-47.0); HEMOGLOBIN 13.4 g/dL (12.0-15.5); LYMPH # 2.8 x10^3/uL (1.0-4.8); LYMPH % 38 % (24-48); MEAN CORPUSCULAR HEMOGLOBIN 30 pg (25-35); MEAN CORPUSCULAR HGB CONC 34 g/dL (31-37); MEAN CORPUSCULAR VOLUME 88 fL (79-100); MONO # 0.4 x10^3/uL (0.0-1.1); MONO % 6 % (0-9); NEUT # 3.8 x10^3uL (1.8-7.7); NEUT % 52 % (31-73); PLATELET COUNT 214 x10^3/uL (140-400); RED BLOOD COUNT 4.47 x10^6/uL (3.50-5.40); RED CELL DISTRIBUTION WIDTH 13.5 % (11.5-14.5); WHITE BLOOD COUNT 7.3 x10^3/uL (4.0-11.0)
[2021-03-16] MEDS ORDERED: LIDO:MAALOX 1:1 20 ML SINGLE DOSE. PO ONE (21:30)
== END 2021-03-16 21:40 | disposition home or self-care (01) ==
LOC: ER 19:25
DX: R10.31 Right lower quadrant pain (principal); J45.909 Unspecified asthma, uncomplicated; F17.210 Nicotine dependence, cigarettes, uncomplicated; Z88.3 Allergy status to other anti-infective agents
CPT/HCPCS: 36415; 74177; 80053; 81001; 81025; 83690; 85025; 96361; 96374; 96375; 99285; J2270; J2405; J7120; Q9967

== ENCOUNTER 2021-03-19 17:59 | Emergency (ER) | payer OTHER, MEDICAID ==
[~2021-03-19] VITALS: Ht 160 cm; Wt 75.0 kg
--- NOTE | 2021-03-19 18:43 | PHYS DOC ---
Past History Past Medical History: Arthritis, Asthma, Fibromyalgia, Migraines, Pneumonia, Other Additional Past Medical Histor: "PRE-APPENDICITIS" Past Surgical History: Other Additional Past Surgical Histo: LEEP Smoking: Cigarettes, Less than 1pk/day Alcohol Use: Rarely Drug Use: None Adult General Chief Complaint Chief Complaint: ABDOMINAL PAIN HPI HPI Patient is a 35-year-old female with a past medical history significant for anxiety, depression and fibromyalgia who presents with a chief complaint of abdominal pain. States it started on the right a couple days ago and now it is on the left, 3 out of 10, dull and achy in nature with no radiation. Denies any recent traumas, illnesses, fevers, chest pain, shortness of breath, nausea, vomiting, diarrhea, dysuria, hematuria, blood in stool. States she has been eating and drinking normally for her. States he is making urine and stool normally for her. Denies any recent vaginal bleeding, discharge, pain or genital lesions. Denies any history of STIs. States that while here in the emergency department is gotten better. Review of Systems Review of Systems Review of systems otherwise unremarkable except noted in HPI Allergies Allergies Allergies Coded Allergies Type Severity Reaction Last Updated Verified hydrocodone Allergy Unknown Nausea 09/23/20 Yes metronidazole Allergy Unknown Nausea and Vomiting 09/23/20 Yes strawberry Allergy Unknown Hives 09/23/20 Yes Physical Exam Physical Exam Constitutional: Well developed, well nourished, no acute distress, non-toxic appearance. [] HENT: Normocephalic, atraumatic, bilateral external ears normal, oropharynx moist, no oral exudates, nose normal. [] Eyes: conjunctiva normal, no discharge. [] Cardiovascular:Heart rate regular rhythm, no murmur [] Lungs & Thorax: Bilateral breath sounds clear to auscultation [] Abdomen: Bowel sounds normal, soft, no tenderness, no masses, no pulsatile masses. [] Skin: Warm, dry, no erythema, no rash. [] Back: no CVA tenderness. [] Extremities: No tenderness, ROM intact, no edema. [] Neurologic: Alert and oriented X 3, no focal deficits noted. [] Psychologic: Affect normal, judgement normal, mood normal. [] Current Patient Data Lab Results Laboratory Tests Test 03/19/21 18:27 POC Urine HCG, Qualitative hcg negative (Negative) EKG EKG [] Radiology/Procedures Radiology/Procedures [] Heart Score C/O Chest Pain: No Risk Factors: Risk Factors: DM, Current or recent (<one month) smoker, HTN, HLP, family history of CAD, obesity. Risk Scores: Risk Factors: DM, Current or recent (<one month) smoker, HTN, HLP, family history of CAD, obesity. Course & Med Decision Making Course & Med Decision Making Patient is a 35-year-old female presents with abdominal cramping Vital signs not concerning. Physical exam noted above. Patient given pain and nausea medicine in the ED. Laboratory analysis not concerning. Patient alert and oriented no acute distress, pleasant and cooperative stating that she is feeling much better. Discussed differential diagnosis and advised to call primary care physician in the morning and discuss need for [facility] consultation if she is indeed wanting to get a hysterectomy. Gave strict return precautions to the ED. Patient grateful, verbalized understanding and agreed with plan of discharge. [] Dragon Disclaimer Dragon Disclaimer This electronic medical record was generated, in whole or in part, using a voice recognition dictation system. Departure Departure: Impression: Primary Impression: Abdominal pain Disposition: HOME / SELF CARE / HOMELESS Condition: GOOD Referrals: STEPHEN OLMEDO Patient Instructions: Abdominal Pain (Nonspecific) Additional Instructions: Thank you for coming into the emergency department tonight and allowing us to take care of you. Please read all of the attached information very carefully to go back over what we discussed. You can begin a Tylenol, ibuprofen, ice and Benadryl regimen as well as your Zofran that you have at home as discussed. Please take your prescription pain medicine as prescribed and only for breakthrough pain. Please call your primary care physician in the morning to discuss your ED visit and keep your upcoming appointment with her next week. Please also discuss with her in the morning your desire for hysterectomy and discuss local [employer]'s and referrals to get that process started. Please come back to the emergency department immediately with new or concerning symptoms as discussed. NIK THAPA MD Mar 19, 2021 18:43
[2021-03-19 19:02] LABS: CALCIUM 9.1 mg/dL (8.5-10.1); CREATININE 0.7 mg/dL (0.6-1.0); GFR 96.4; POTASSIUM 4.2 mmol/L (3.5-5.1)
[2021-03-19 19:04] LABS: BASO % 1 % (0-3); EOS # 0.2 x10^3/uL (0.0-0.7); EOS % 3 % (0-3); HEMATOCRIT 41.2 % (36.0-47.0); LYMPH # 2.8 x10^3/uL (1.0-4.8); LYMPH % 37 % (24-48); MEAN CORPUSCULAR HEMOGLOBIN 30 pg (25-35); MEAN CORPUSCULAR HGB CONC 34 g/dL (31-37); MEAN CORPUSCULAR VOLUME 88 fL (79-100); MONO # 0.5 x10^3/uL (0.0-1.1); MONO % 7 % (0-9); NEUT # 3.9 x10^3uL (1.8-7.7); NEUT % 52 % (31-73); PLATELET COUNT 249 x10^3/uL (140-400); RED BLOOD COUNT 4.68 x10^6/uL (3.50-5.40); RED CELL DISTRIBUTION WIDTH 13.4 % (11.5-14.5); WHITE BLOOD COUNT 7.4 x10^3/uL (4.0-11.0)
[2021-03-19 19:08] LABS: ALBUMIN 4.2 g/dL (3.4-5.0); ALBUMIN/GLOBULIN RATIO 1.2 (1.0-1.7); TOTAL BILIRUBIN 0.4 mg/dL (0.2-1.0); TOTAL PROTEIN 7.7 g/dL (6.4-8.2)
[2021-03-19 19:11] LABS: BILIRUBIN,URINE NEG (NEG); CLARITY,URINE CLEAR; COLOR,URINE YELLOW; GLUCOSE,URINE NEG (NEG); NITRITE,URINE NEG (NEG); UROBILINOGEN,URINE 0.2 mg/dL (0.2 mg/dL)
[2021-03-19 19:39] LABS: BACTERIA,URINE 0 /HPF (0-FEW); RBC,URINE 0 /HPF (0-2); SQUAMOUS EPITHELIAL CELL,UR FEW /LPF; WBC,URINE 0 /HPF (0-4)
[2021-03-19] MEDS ORDERED: OXYC-325 PO (19:56)
[2021-03-19] MEDS ORDERED: OXYC-314 PO (19:59)
[2021-03-19 20:15] VITALS: BP 99/56
[2021-03-19] MEDS: oxyCODONE/APAP 5/325 1 TAB TABLET PO ONE (20:15)
== END 2021-03-19 20:15 | disposition home or self-care (01) ==
LOC: ER 17:59
DX: R10.9 Unspecified abdominal pain (principal); F41.9 Anxiety disorder, unspecified; F32.9 Major depressive disorder, single episode, unspecified; J45.909 Unspecified asthma, uncomplicated; F17.210 Nicotine dependence, cigarettes, uncomplicated; Z88.3 Allergy status to other anti-infective agents
CPT/HCPCS: 36415; 80053; 81001; 81025; 83690; 85025; 99283

== ENCOUNTER → 2021-03-30 | Outpatient (CLI) | payer OTHER, MEDICAID ==
[2021-03-19 20:15] VITALS: BP 99/56
[~2021-03-30] MED LIST changes: +OXYC-314 PO; +OXYC-325 PO
--- NOTE | 2021-03-30 11:22 | RAD ---
EXAM: Pelvic sonogram. HISTORY: Dysfunctional uterine bleeding. Pelvic pain. TECHNIQUE: Sonographic imaging of the pelvis was performed. COMPARISON: None. FINDINGS: The uterus measures 6.2 x 3.9 x 2.9 cm. The endometrial stripe measures 2.1 mm in thickness . The ovaries are normal in size and demonstrate normal blood flow. There is no pelvic free fluid. Th e bladder is unremarkable. IMPRESSION: Unremarkable pelvic sonogram. Electronically signed by: Rita Mahmood MD (03/30/2021 11:19 AM) [id number]
== END ==
LOC: US 10:49
PROVIDERS: ATTEND Physician Assistant Medical
DX: N93.8 Other specified abnormal uterine and vaginal bleeding (principal)
CPT/HCPCS: 76856

== ENCOUNTER → 2021-04-05 | Outpatient (CLI) | payer OTHER ==
[2021-03-19 20:15] VITALS: BP 99/56
== END ==
LOC: LAB 13:54
PROVIDERS: ATTEND Internal Medicine Cardiovascular Disease
DX: R05 Cough (principal); R09.89 Other specified symptoms and signs involving the circulatory and respiratory systems; Z20.822 Contact with and (suspected) exposure to COVID-19
CPT/HCPCS: U0003

== ENCOUNTER 2021-08-17 18:02 | Emergency (ER) | payer MEDICAID, OTHER ==
[~2021-08-17] VITALS: Ht 160 cm; Wt 68.5 kg
[2021-08-17] MEDS ORDERED: DEXAMETHASONE 4 MG TABLET PO ONE (18:45)
[2021-08-17] MEDS ORDERED: IBUPROFEN 600 MG TABLET. PO ONE (18:45)
--- NOTE | 2021-08-17 18:48 | RAD ---
XR CHEST 1V INDICATION: cough, URI symptoms COMPARISON STUDY: 10/22/2020. FINDINGS: Lungs: Normal lung volume. No pulmonary mass or consolidation. The tracheobronchial tree and hilar st ructures are normal. Pleura: No pleural effusion or pneumothorax. Heart and Mediastinum: The cardiomediastinal silhouette is normal. The great vessels of the thorax ar e normal. Bones and Soft Tissues: The bones and soft tissues are within normal limits. IMPRESSION: No acute cardiopulmonary process. Electronically signed by: Shahid Bob MD (08/17/2021 6:46 PM) [facility]
[2021-08-17] MEDS ORDERED: ALBU2.5V8 IH (19:24)
[2021-08-17] MEDS ORDERED: LEVO750T5 PO (19:24)
[2021-08-17] MEDS ORDERED: PRED20TA PO (19:24)
--- NOTE | 2021-08-17 19:24 | PHYS DOC ---
Past History Past Medical History: Arthritis, Asthma, Fibromyalgia, Migraines, Pneumonia, Other Additional Past Medical Histor: take depo shot for birthcontrol Past Surgical History: Other Additional Past Surgical Histo: LEEP procedure in 2014 Smoking: Cigarettes, Less than 1pk/day Additional Smoking Information: normally smokes 1/2 pack a day, but since sick only about 1 cig a day. Alcohol Use: Rarely Drug Use: None General Adult EDM: Chief Complaint: FEVER HPI: HPI: Patient is a [age] year old [sex] who presents with [] Review of Systems: Review of Systems: Constitutional: Denies fever or chills Eyes: Denies redness or eye pain HENT: Denies nasal congestion or sore throat Respiratory: Denies cough or shortness of breath Cardiovascular: Denies chest pain or palpitations GI: Denies abdominal pain, nausea, or vomiting : Denies dysuria or hematuria Musculoskeletal: Denies back pain or joint pain Integument: Denies rash or skin lesions Neurologic: Denies headache, focal weakness or sensory changes Complete systems were reviewed and found to be within normal limits, except as documented in this note. Current Medications: Current Meds: Current Medications Medications (Trade) Dose Ordered Sig/Danielle Start Time Stop Time Status Last Admin Dose Admin Dexamethasone (Decadron) 10 mg 1X ONCE 08/17/21 18:45 08/17/21 18:46 DC 08/17/21 19:05 10 MG Ibuprofen (Motrin) 600 mg 1X ONCE 08/17/21 18:45 08/17/21 18:46 DC 08/17/21 19:05 600 MG Allergies: Allergies: Allergies Coded Allergies Type Severity Reaction Last Updated Verified hydrocodone Allergy Unknown Nausea 09/23/20 Yes metronidazole Allergy Unknown Nausea and Vomiting 09/23/20 Yes strawberry Allergy Unknown Hives 09/23/20 Yes Physical Exam: PE: Constitutional: Well developed, well nourished, no acute distress, non-toxic appearance HENT: Normocephalic, atraumatic Eyes: PERRL, EOMI, conjunctiva normal, no discharge Neck: Normal range of motion, no tenderness, supple Lungs & Thorax: No respiratory distress, equal chest rise and fall Abdomen: Soft, no tenderness Skin: Warm, dry, no erythema, no rash Back: No tenderness, no CVA tenderness Extremities: No tenderness, ROM intact, no edema Neurologic: Alert and oriented X 3, normal motor function, normal sensory function, no focal deficits noted Psychologic: Affect normal, judgment normal Current Patient Data: Vital Signs: Vital Signs Date Time Temp Pulse Resp B/P (MAP) Pulse Ox O2 Delivery O2 Flow Rate FiO2 08/17/21 18:43 98.4 65 20 104/71 (82) 98 Room Air EKG: EKG: [] Radiology/Procedures: Radiology/Procedures: PROCEDURE: CHEST AP ONLY XR CHEST 1V INDICATION: cough, URI symptoms COMPARISON STUDY: 10/22/2020. FINDINGS: Lungs: Normal lung volume. No pulmonary mass or consolidation. The tracheobronchial tree and hilar structures are normal. Pleura: No pleural effusion or pneumothorax. Heart and Mediastinum: The cardiomediastinal silhouette is normal. The great vessels of the thorax are normal. Bones and Soft Tissues: The bones and soft tissues are within normal limits. IMPRESSION: No acute cardiopulmonary process. Electronically signed by: Shahid Bob MD (08/17/2021 6:46 PM) [facility] Heart Score: C/O Chest Pain: N/A Course & Med Decision Making: Course & Med Decision Making Pertinent Labs and Imaging studies reviewed. (See chart for details) Patient stable for discharge with outpatient follow-up with PCP. Discussed findings and plan with patient, who acknowledges understanding and agreement. COVID-19 CRITERIA: The patient was evaluated during the global COVID-19 pandemic, and that diagnosis was suspected/considered upon their initial presentation. Their evaluation, treatment and testing was consistent with current guidelines for patients who present with complaints or symptoms that may be related to COVID-19. Magdalena Disclaimer: Magdalena Disclaimer: This electronic medical record was generated, in whole or in part, using a voice recognition dictation system. Departure Departure: Impression: Primary Impression: Viral syndrome Additional Impression: History of influenza Disposition: HOME / SELF CARE / HOMELESS Condition: STABLE Referrals: ERNESTINA HOPE (PCP) Patient Instructions: Influenza, Adult, [id number], Viral Syndrome Additional Instructions: Hold antibiotics for 48 hours. If symptoms worsen or for fever > 100.3 F after 48 hours then start antibiotics as prescribed. You have been tested for or diagnosed with COVID-19. It is an infection caused by a new type of coronavirus. COVID-19 will cause cold-like or mild flu symptoms in most. It can cause more severe symptoms like problems breathing in some. There is no treatment for COVID-19. The body will clear the infection over time. Self-care will help to ease discomfort. Steps to Take: Self-Care Rest as needed. Healthy habits may help you feel better. Steps include: Choose healthy foods including fruits and vegetables. Drink water throughout the day. Get plenty of sleep each night. If you smoke, try to quit. It may ease breathing. Avoid alcohol. Keep Others Healthy The virus can spread to others. Droplets are released every time you sneeze or cough. The droplets can get into the mouth, nose, or eyes of people near you and lead to infection. To lower the chances of spreading COVID-19 to others: Stay at home until your doctor has said it is safe to leave. If you tested positive this will mean staying isolated until both of the following are true: At least 7 days have passed since the start of illness. You are free of fever for at least 72 hours without the use of medicine. During this time: - Avoid public areas, events, or transportation. Do not return to work or school until your doctor has said it is safe to do so. - Call ahead if you need to go to a medical center. Let them know you may have COVID-19. It will help them guide you where to go. They may also ask you to wear a facemask when you come to the office. - If you call for emergency medical services, let them know you may have COVID- 19. While at home: - Try to avoid close contact with others. Stay about 6 feet away. - If possible, spend most of your time in a separate room from others. - Use a face mask if you will be in close contact with others such as sharing a room or vehicle. - Have someone wipe down common surfaces in the home. Use household coding educator every day on areas like doorknobs, counters, or sinks. - Cough or sneeze into a tissue. Throw the tissue away right after use. If a tissue is not available, cough or sneeze into your elbow. - Wash your hands often. Wash them after sneezing or coughing. Use soap and water and wash for at least 20 seconds. Alcohol based hand dry cleaner hand can be used if soap and water is not available. - Do not prepare food for others. Avoid sharing personal items like forks, spoons, or toothbrushes. - Avoid close contact with pets while you are sick. There is no evidence of the virus passing to pets. This is a safety step until more is known about this virus. Isolation can be frustrating. Social interaction can help. Keep in touch with friends and family through phone and tech options. You can still interact with others in your home, just keep a safe distance of about 6 feet. Follow-up: Your doctors office will check in with you to see if there are any changes in your health. You may be asked to keep track of symptoms to share with them. They will also let you know when you are clear to be in public again. Problems to Look Out For: Contact your doctor if your recovery is not going as you expect. Get emergency care if you have problems such as: - Trouble breathing - Nonstop chest pain or pressure - Changes in awareness, confusion, or problems waking - Lips or face have bluish color - Worsening of symptoms If you think you have an emergency, call for emergency medical services right away. As taken from [facility] Levofloxacin (LEVOFLOXACIN) 750 Mg Tablet 1 TAB PO DAILY for Bronchitis, #7 TAB Prov: DRAKE MARTINEZ DO 08/17/21 Prednisone (PREDNISONE) 20 Mg Tablet 2 TAB PO DAILY for Asthma, #8 TAB Start this prescription tomorrow, Tuesday08/18/21 Prov: DRAKE MARTINEZ DO 08/17/21 Albuterol Sulfate (PROAIR HFA INHALER) 8.5 Gm Hfa.aer.ad 2 PUFF IH PRN Q4-6HRS PRN for wheezing, #1 INHALER 0 Refills Prov: DRAKE MARTINEZ DO 08/17/21 COVID-19 Assessment COVID-19 Patient Risks: Age 65 or older: No Sign of co-morbidity: Yes Exp to person + for COVID: No Exp to PUI: No Travel from affected area: No Lower respiratory symptoms: Yes Fever: Yes Other: Yes PPE Use: Full PPE with N95 mask or PAPR: Yes DRAKE MARTINEZ DO Aug 17, 2021 19:24
[2021-08-17 19:52] VITALS: BP 99/65
== END 2021-08-17 20:03 | disposition home or self-care (01) ==
LOC: ER 18:02
DX: B34.9 Viral infection, unspecified (principal); M19.90 Unspecified osteoarthritis, unspecified site; J45.909 Unspecified asthma, uncomplicated; M79.7 Fibromyalgia; G43.909 Migraine, unspecified, not intractable, without status migrainosus; F17.210 Nicotine dependence, cigarettes, uncomplicated; Z20.822 Contact with and (suspected) exposure to COVID-19; Z88.5 Allergy status to narcotic agent; Z91.013 Allergy to seafood; Z88.8 Allergy status to other drugs, medicaments and biological substances
CPT/HCPCS: 71045; 99284; C9803; J8540; U0003

== ENCOUNTER → 2021-12-08 | Outpatient (CLI) | payer MEDICAID ==
[~2021-12-08] MED LIST changes: +ALBU2.5V8 IH; +LEVO750T5 PO; +PRED20TA PO
[2021-12-09 00:07] LABS: FSH 9.8 mIU/mL (.); LUTEINIZING HORMONE 10.1 mIU/mL (.)
== END ==
LOC: LAB 15:10
PROVIDERS: ATTEND Obstetrics & Gynecology
DX: N94.10 Unspecified dyspareunia (principal)
CPT/HCPCS: 36415; 82670; 83001; 83002

== ENCOUNTER 2021-12-31 11:50 | Emergency (ER) | payer MEDICAID ==
[~2021-12-31] VITALS: Ht 160 cm; Wt 68.5 kg
[2021-12-31] MEDS ORDERED: IV RINGERS SOLUTION,LACTATED 1,000 ML IV ONE (12:15)
[2021-12-31] MEDS ORDERED: PROCHLORPERAZINE 10 MG/2 ML VIAL. IV ONE (12:30)
[2021-12-31] MEDS ORDERED: diphenhydrAMINE 50 MG/ML VIAL IVP ONE (12:30)
[2021-12-31] MEDS ORDERED: KETOROLAC 15 MG/ML VIAL. IVP ONE (12:30)
--- NOTE | 2021-12-31 12:39 | PHYS DOC ---
Past History Past Medical History: Anxiety, Arthritis, Asthma, Fibromyalgia, Migraines, Pneumonia, Other Additional Past Medical Histor: take depo shot for birthcontrol Past Surgical History: Other Additional Past Surgical Histo: LEEP procedure in 2014 Smoking: Cigarettes, Less than 1pk/day Alcohol Use: Rarely Drug Use: None General Adult EDM: Chief Complaint: HEADACHE HPI: HPI: Patient is a 36 year old female with past medical history that includes migraines, fibromyalgia, anxiety, rheumatoid arthritis, asthma who presents with symptoms that began around 0830 this morning while at work. She reports her symptoms are fatigue, nausea, headache, lightheadedness, brain fog, hand shakiness, polydipsia and 4 episodes of diarrhea. Patient took sumatriptan this morning, she felt it may have been a migraine headache. This did not offer her significant relief. She states that she has been checking her blood sugars under advisement of her PCP, who believes she may have diabetes. She states her sugars have been "okay. Random blood glucose was 171 at 10 AM this morning. Patient states that her lightheadedness is exacerbated by standing up. She has no other complaints than those mentioned in this HPI. Review of Systems: Review of Systems: ROS negative or noncontributory except as mentioned in HPI. Current Medications: Current Meds: Current Medications Medications (Trade) Dose Ordered Sig/Danielle Route PRN Reason Start Time Stop Time Status Last Admin Dose Admin Lactated Ringer's 1,000 ml @ 1,000 mls/hr 1X ONCE IV 12/31/21 12:15 12/31/21 13:14 DC 12/31/21 12:41 Ketorolac Tromethamine (Toradol 15mg Vial) 15 mg 1X ONCE IVP 12/31/21 12:30 12/31/21 12:31 DC 12/31/21 12:41 Prochlorperazine Edisylate (Compazine) 10 mg 1X ONCE IV 12/31/21 12:30 12/31/21 12:31 DC 12/31/21 12:41 Diphenhydramine HCl (Benadryl) 25 mg 1X ONCE IVP 12/31/21 12:30 12/31/21 12:31 DC 12/31/21 12:41 Sumatriptan Succinate (Imitrex) 6 mg 1X ONCE SQ 12/31/21 13:15 12/31/21 13:20 DC 12/31/21 13:21 Allergies: Allergies: Allergies Coded Allergies Type Severity Reaction Last Updated Verified hydrocodone Allergy Unknown Nausea 09/23/20 Yes metronidazole Allergy Unknown Nausea and Vomiting 09/23/20 Yes strawberry Allergy Unknown Hives 09/23/20 Yes Physical Exam: PE: Constitutional: Well developed, well nourished, no acute distress, non-toxic appearance. HENT: Normocephalic, atraumatic, bilateral external ears normal, nose normal. Eyes: PERRL, EOMI, conjunctiva normal, no discharge. Neck: Normal range of motion, no stridor. Cardiovascular: Heart regular rate and rhythm without apparent murmurs, rubs or gallops. Lungs & Thorax: Bilateral breath sounds clear to auscultation. Abdomen: Bowel sounds normal, soft, no tenderness, no masses, no pulsatile masses. Skin: Warm, dry, no erythema, no rash. Neurologic: Alert and oriented x4, normal motor function, normal sensory function, no focal deficits noted, no nuchal rigidity, negative Brudzinski sign.. Current Patient Data: Vital Signs: Vital Signs Date Time Temp Pulse Resp B/P (MAP) Pulse Ox O2 Delivery O2 Flow Rate FiO2 12/31/21 13:43 80 16 110/72 (85) 100 Room Air 12/31/21 12:17 98.0 80 16 104/73 (83) 100 Room Air EKG: EKG: EKG Interpreted by Dr. Dr. Gonzalez at 1253: Regular rate and rhythm 69 bpm with no ectopic beats. VA 128 ms/QT 372 ms. No STEMI. Heart Score: C/O Chest Pain: No Course & Med Decision Making: Course & Med Decision Making Pertinent Labs and Imaging studies reviewed. (See chart for details) Patient is a 36-year-old female who presents with multiple complaints that all began this morning while at work. At this time, it seems likely that her symptoms are due to migraine. Work-up today will include EKG due to complaints of lightheadedness. Otherwise, she will be treated with IV fluids, Toradol, Compazine, Benadryl. After medication administration, patient still complains of significant headache. Additional dose of Imitrex was added, subcutaneous route. On reevaluation, patient states she feels much improved. EKG is reassuring. Patient will be discharged back to home with strict return precautions. She was given follow-up contact info for neurology as well. Patient understands and is agreeable to discharge plan. Magdalena Disclaimer: Magdalena Disclaimer: This electronic medical record was generated, in whole or in part, using a voice recognition dictation system. Departure Departure: Impression: Primary Impression: Migraine without aura and with status migrainosus, not intractable Disposition: HOME / SELF CARE / HOMELESS Condition: IMPROVED Referrals: ERNESTINA HOPE (PCP) ABNER MCCARTHY MD Patient Instructions: Migraine Headache, [id number] Additional Instructions: EMERGENCY DEPARTMENT GENERAL DISCHARGE INSTRUCTIONS Thank you for coming to [facility] (ED) today and trusting us with you care. We trust that you had a positive experience in our Emergency Department. If you wish to speak to the department management, you may call the director at [phone]. YOUR FOLLOW UP INSTRUCTIONS ARE FOLLOWS: 1. Follow up with your primary care doctor. If you do not have a primary doctor, please ask for a resource list of physicians or clinics that may be able to assist you with follow up care. 2. The emergency provider has interpreted your imaging studies, if any were ordered. The radiology pre billing specialist also reviewed them. If there is a change in the findings, you will be notified in 48 hours when at all possible. 3. If a lab test or culture has been done, your results will be reviewed and you will be notified if you need a change in treatment. 4. Follow instructions verbalized to you and refer to the printouts if needed. ADDITIONAL INSTRUCTIONS AND INFORMATION: 1. Your care today has been supervised by a physician who is specially trained in emergency care. Many problems require more than one evaluation for a complete diagnosis and treatment. We recommend that you schedule your follow up appointment as recommended to ensure complete treatment of you illness or injury. If you are unable to obtain follow up care and continue to have a problem, or if your condition worsens, we recommend that you return to the ED. 2. We are not able to safely determine your condition over the phone nor are we able to give sound medical advice over the phone. For these safety reasons, if you call for medical advice we will ask you to come to the ED for further evaluation. 3. If you have any questions regarding these discharge instructions please call the ED at [phone]. SAFETY INFORMATION: In the interest of safety, wellness, and injury prevention; we encourage you to wear your seat belt, if you smoke; quite smoking, and we encourage family to use a protective helmet for bicycling and other sporting events that present an increased risk for head injury. IF YOUR SYMPTOMS WORSEN OR NEW SYMPTOMS DEVELOP, OR YOU HAVE CONCERNS ABOUT YOUR CONDITION; OR IF YOUR CONDITION WORSENS WHILE YOU ARE WAITING FOR YOUR FOLLOW UP APPOINTMENT; EITHER CONTACT YOUR PRIMARY CARE DOCTOR, THE PHYSICIAN WHOSE NAME AND NUMBER YOU WERE GIVEN, OR RETURN TO THE ED IMMEDIATELY. KRISTI CHAWLA Dec 31, 2021 12:39
--- NOTE | 2021-12-31 13:04 | EKG ---
[address] [address] Test Date: 2021-12-31 Test Time: 12:52:40 Pat Name: KAREN LEONARD Department: Room: Gender: F Natural Sciences Manager: SOLITARIO : 1985 Requested By: KRISTI CHAWLA Order Number: [id number] Reading MD: Jus Guzman Measurements Intervals [place] Rate: 69 P: 38 MA: 128 QRS: 44 QRSD: 80 T: 32 QT: 372 QTc: 404 Interpretive Statements SINUS ARRHYTHMIA OTHERWISE NORMAL ECG RI6.02 No previous ECG available for comparison Electronically Signed On 01-01-2022 13:18:58 CDT by Jus Guzman
[2021-12-31] MEDS ORDERED: SUMAtriptan SUCC 6 MG/0.5 ML VIAL SQ ONE (13:15)
[2021-12-31 13:43] VITALS: BP 110/72
== END 2021-12-31 13:49 | disposition home or self-care (01) ==
LOC: ER 11:50
DX: G43.009 Migraine without aura, not intractable, without status migrainosus (principal); F41.9 Anxiety disorder, unspecified; M19.90 Unspecified osteoarthritis, unspecified site; J45.909 Unspecified asthma, uncomplicated; M79.7 Fibromyalgia; F17.210 Nicotine dependence, cigarettes, uncomplicated; Z88.5 Allergy status to narcotic agent; Z91.018 Allergy to other foods; Z88.8 Allergy status to other drugs, medicaments and biological substances
CPT/HCPCS: 93005; 96361; 96372; 96374; 96375; 99284; J0780; J1200; J1885; J3030; J7120